=== PATIENT | female | born 1985 | race African-American/Black ===

== ENCOUNTER 2016-02-28 09:06 | Emergency (ER) | payer BC ==
[~2016-02-28] VITALS: Ht 157.5 cm; Wt 70.1 kg
[~2016-02-28 09:06] MED LIST: DIPH-437 PO; NYQUIL PO
[2016-02-28 09:12] VITALS: TEMP 36.9; Ht 157.5 cm; Wt 70.1 kg
[2016-02-28 10:09] LABS: BASO % 0.2 %; BASO ABS # 0.01 K/uL (0-0.2); COMPLETE YES; EOS % 2.2 %; HEMATOCRIT 38.3 % (37-47); IG% 0.4 %; LYMPH ABS # 1.71 K/uL (1.2-3.4); MEAN CELL VOLUME 98.2 fL (80-100); MEAN CORPUSCULAR HEMOGLOBIN 33.1 pg (25-34); MEAN CORPUSCULAR HGB CONC 33.7 g/dl (32-36); MEAN PLATELET VOLUME 10.4 fL (7.4-10.4); MONO % 6.9 %; NEUT % 59.3 %; PLATELET COUNT 236 K/uL (130-400); WHITE BLOOD COUNT 5.51 K/uL (4.8-10.8)
[2016-02-28 10:26] LABS: BUN/CREATININE RATIO 14.4 (10-20); CALCIUM 8.5 mg/dl (8.5-10.1); CREATININE 0.63 mg/dl (0.60-1.20)
[2016-02-28 10:29] LABS: ALB/GLOB RATIO 1.1 (0.9-2)
[2016-02-28] MEDS ORDERED: SODIUM CHLORIDE 0.9% 1000ML 1,000 ML IV ONE (10:30)
[2016-02-28 10:47] LABS: URINE APPEARANCE CLEAR (CLEAR); URINE BILIRUBIN NEG (NEG); URINE COLOR YELLOW; URINE NITRITE NEG (NEG); URINE PH >= 9.0 (4.5-7.5); URINE SPECIFIC GRAVITY 1.014 (1.000-1.030); UROBILINOGEN NEG (NEG); ZZUR CULT IF INDIC CLEAN CATCH NO
[2016-02-28 10:50] LABS: MANUAL MICROSCOPIC REQUIRED? NO; REVIEW REQ? NO
--- NOTE | 2016-02-28 11:14 | DIAGNOSTIC IMAGING REPORT ---
CHEST 2 VIEWS ROUTINE CLINICAL HISTORY: Cough COMPARISON STUDY: 05/07/2015 FINDINGS: The cardiac and mediastinal contours are normal. There is no evidence of focal pulmonary consolidation. There is no evidence of failure. No pleural effusions are visualized.[ IMPRESSION: No active disease in the chest. Electronically signed by: Santi London M.D. 02/28/2016 11:12 AM Dictated Date/Time: 02/28/2016 11:12 AM
[2016-02-28 12:15] VITALS: BP 110/71; PULSE 61; O2SAT 100
--- NOTE | 2016-02-28 16:42 | EMERGENCY ROOM VISIT NOTE ---
History First contact with patient: 09:55 Chief Complaint: FLU LIKE SX Stated Complaint: FLU SYMPTOMS X 3-4 DAYS History of Present Illness The patient is a 30 year old female who presents to the Emergency Room with complaints of flulike symptoms for the past 6 or 7 days. Patient states that she has had a productive cough, nausea, and intermittent diarrhea. She works at a [employer] with multiple potential exposure to disease. She has had to call off from work several times this week because of her symptoms. She has not had a fever. No chest pain, shortness of breath, or abdominal pain. No recent antibiotic usage. She has been using NyQuil with mild improvement of symptoms in the evening. She rates her discomfort a 7/10. Review of Systems More than 10 systems were reviewed and otherwise negative with the exception of history of present illness. Past Medical/Surgical History Medical Problems: (1) Cellulitis and abscess (2) Ovarian cyst Family History Cancer Gallbladder disease Heart disease Hypertension Lung disease Social History Smoking Status: Current Every Day Smoker Alcohol Use: occasionally Marital Status: single Housing Status: lives alone Occupation Status: employed Current/Historical Medications Scheduled [Nyquil], 2 CAP PO HS Allergies Coded Allergies: No Known Allergies (Unverified , 02/28/16) Physical Exam Vital Signs Date Time Temp Pulse Resp B/P Pulse Ox O2 Delivery O2 Flow Rate FiO2 02/28/16 12:15 61 18 110/71 100 Room Air 02/28/16 11:15 100/56 02/28/16 09:12 36.9 76 18 120/72 98 Room Air Pain Rating (0-10): 0 Physical Exam VITALS: Vitals are noted on the nurse's note and reviewed by myself. Vital signs stable. GENERAL: Well-developed, well-nourished, female, who is in no acute distress and resting comfortably. Patient is cooperative with the examination. HEAD: Normocephalic atraumatic. EARS: External ear normal. External auditory canals clear, tympanic membranes pearly walker without erythema or effusion bilaterally. EYES: Pupils equal round and reactive to light and accommodation. Conjunctivae without injection, sclerae without icterus. Extraocular movements intact. NOSE: Patent, turbinates without inflammation or discharge. MOUTH: Mucous membranes moist. Tonsils are not enlarged. Pharynx without erythema, blood, or exudate. Uvula midline. Airway patent. NECK: Supple without nuchal rigidity. No lymphadenopathy. No thyromegaly. Cervical spine is nontender. HEART: Regular rate and rhythm without murmurs gallops or rubs. LUNGS: Clear to auscultation bilaterally without wheezes, rales or rhonchi. No retractions or accessory muscle use. ABDOMEN: Positive normal bowel sounds x 4. Soft, nontender, without masses or organomegaly. No guarding or rebound tenderness. MUSCULOSKELETAL: No muscle atrophy, erythema, or edema noted. Full range of motion without joint tenderness in all extremities. NEURO: Patient was alert and oriented to person place and time. CN II through XII grossly intact. Medical Decision & Procedures ER Provider Diagnostic Interpretation: CHEST 2 VIEWS ROUTINE CLINICAL HISTORY: Cough COMPARISON STUDY: 05/07/2015 FINDINGS: The cardiac and mediastinal contours are normal. There is no evidence of focal pulmonary consolidation. There is no evidence of failure. No pleural effusions are visualized.[ IMPRESSION: No active disease in the chest. Laboratory Results 02/28/16 09:32 Red Blood Count 3.90, Mean Corpuscular Volume 98.2, Mean Corpuscular Hemoglobin 33.1, Mean Corpuscular Hemoglobin Concent 33.7, Mean Platelet Volume 10.4, Neutrophils (%) (Auto) 59.3, Lymphocytes (%) (Auto) 31.0, Monocytes (%) (Auto) 6.9, Eosinophils (%) (Auto) 2.2, Basophils (%) (Auto) 0.2, Neutrophils # (Auto) 3.27, Lymphocytes # (Auto) 1.71, Monocytes # (Auto) 0.38, Eosinophils # (Auto) 0.12, Basophils # (Auto) 0.01 02/28/16 09:32 Test 02/28/16 09:32 02/28/16 09:35 02/28/16 10:30 White Blood Count 5.51 K/uL (4.8-10.8) Red Blood Count 3.90 M/uL (4.2-5.4) Hemoglobin 12.9 g/dL (12.0-16.0) Hematocrit 38.3 % (37-47) Mean Corpuscular Volume 98.2 fL (80-100) Mean Corpuscular Hemoglobin 33.1 pg (25-34) Mean Corpuscular Hemoglobin Concent 33.7 g/dl (32-36) Platelet Count 236 K/uL (130-400) Mean Platelet Volume 10.4 fL (7.4-10.4) Neutrophils (%) (Auto) 59.3 % Lymphocytes (%) (Auto) 31.0 % Monocytes (%) (Auto) 6.9 % Eosinophils (%) (Auto) 2.2 % Basophils (%) (Auto) 0.2 % Neutrophils # (Auto) 3.27 K/uL (1.4-6.5) Lymphocytes # (Auto) 1.71 K/uL (1.2-3.4) Monocytes # (Auto) 0.38 K/uL (0.11-0.59) Eosinophils # (Auto) 0.12 K/uL (0-0.5) Basophils # (Auto) 0.01 K/uL (0-0.2) RDW Standard Deviation 50.3 fL (36.4-46.3) RDW Coefficient of Variation 14.1 % (11.5-14.5) Immature Granulocyte % (Auto) 0.4 % Immature Granulocyte # (Auto) 0.02 K/uL (0.00-0.02) Anion Gap 10.0 mmol/L (3-11) Est Creatinine Clear Calc Drug Dose 122.0 ml/min Estimated GFR () 141.5 Estimated GFR (Non- 122.1 BUN/Creatinine Ratio 14.4 (10-20) Calcium Level 8.5 mg/dl (8.5-10.1) Total Bilirubin 0.2 mg/dl (0.2-1) Aspartate Amino Transf (AST/SGOT) 10 U/L (15-37) Alanine Aminotransferase (ALT/SGPT) 17 U/L (12-78) Alkaline Phosphatase 37 U/L (45-117) Total Protein 6.4 gm/dl (6.4-8.2) Albumin 3.3 gm/dl (3.4-5.0) Globulin 3.1 gm/dl (2.5-4.0) Albumin/Globulin Ratio 1.1 (0.9-2) Lipase 264 U/L (73-393) Influenza Type A Antigen Neg for Influ A (NEG) Influenza Type B Antigen Neg for Influ B (NEG) Urine Color YELLOW Urine Appearance CLEAR (CLEAR) Urine pH >= 9.0 (4.5-7.5) Urine Specific [place] 1.014 (1.000-1.030) Urine Protein NEG (NEG) Urine Glucose (UA) NEG (NEG) Urine Ketones NEG (NEG) Urine Occult Blood NEG (NEG) Urine Nitrite NEG (NEG) Urine Bilirubin NEG (NEG) Urine Urobilinogen NEG (NEG) Urine Leukocyte Esterase NEG (NEG) Urine Test NEG (NEG) Medications Administered Medications (Trade) Dose Ordered Sig/Mejia Route Start Time Stop Time Status Last Admin Dose Admin Sodium Chloride (Nss 1000ml) 1,000 ml @ 999 mls/hr Q1H1M ONCE IV 02/28/16 10:30 02/28/16 11:30 DC 02/28/16 10:30 999 MLS/HR ED Course Physical exam and history were performed. Nursing notes and EMR were reviewed. Patient appears to have flulike symptoms for the past week. On exam the patient does not appear toxic. She does not have a significant fever or findings on exam. Because of the length of time of symptoms and reports of persisting cough IV access was established and basic labs were obtained. Chest x-ray was performed. The patient was hydrated with normal saline. The patient's blood work is as above and was reviewed. She does not have a significantly elevated white blood cell count, anemia, bandemia, or gross electrolyte imbalance. Influenza is negative. Chest x-ray does not show acute findings. After a few hours of emergency department stay, the patient requested that I return to the room. 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 I was still awaiting urine testing at the time of this request, I did explain this to the patient. The patient indicated that she had to leave, and was insistent that we remove her IV. I explained that we would provide her appropriate paperwork for discharge, and would contact her should her urine show significant results. The patient was comfortable with this. The patient did request a note for work, and I did give her a note for today only despite her asking for a note for the past week. She must follow with her primary care physician for further care and management. She was otherwise invited back any time and rated her discomfort a 0/10 at the time of departure. The chart was completed utilizing [employer] Voice Recognition Software. Grammatical errors, random word insertions, pronoun errors, and incomplete sentences are an occasional consequence of this system due to software limitations, ambient noise, and hardware issues. Any formal questions or concerns about the content, text, or information contained within the body of this dictation should be directly addressed to the provider for clarification. . Medical Decision Differential diagnosis: Etiologies such as viral syndrome, otitis, pharyngitis, pneumonia, influenza, meningitis, urinary tract infection, sepsis, bacteremia, as well as others were entertained. Impression Primary Impression: Flu-like symptoms Departure Information Dispostion Home / Self-Care Condition FAIR Forms HOME CARE DOCUMENTATION FORM, School Instructions, Additional Instructions: Patient was seen and evaluated today in the emergency department fo medical care. May return to work on 02/29/2016. Please excuse. IMPORTANT VISIT INFORMATION Patient Instructions A Signature Page, [facility] Additional Instructions You were seen and evaluated today on an emergency basis only. This is not a substitute for, or an effort to provide, complete comprehensive medical care. It is not possible to recognize and treat all injuries or illnesses in a single emergency department visit. For this reason it is recommended that you followup with your primary care physician in the next week for ongoing care and evaluation. For baseline pain relief you may alternate ibuprofen and acetaminophen every 4 hours for pain control. Take 600 mg ibuprofen (Advil) and then 4 hours later take 1000 mg acetaminophen (Tylenol). Do not take more than 3000 mg acetaminophen in a single day. You are welcome to return to the emergency department anytime with new, worsening, or concerning symptoms. School Instructions Additional School Instructions: Patient was seen and evaluated today in the emergency department for medical care. May return to work on 02/29/2016. Please excuse.
== END 2016-02-28 12:34 | disposition home or self-care (01) ==
LOC: C.EDB 09:07
DX: R05 Cough (principal); R11.0 Nausea; R19.7 Diarrhea, unspecified; F17.210 Nicotine dependence, cigarettes, uncomplicated

== ENCOUNTER 2016-10-26 04:01 | Emergency (ER) | payer BC, OTHER ==
[~2016-10-26] VITALS: Ht 162.6 cm; Wt 73.0 kg
[~2016-10-26 04:01] MED LIST changes: -DIPH-437 PO
[2016-10-26 04:13] VITALS: TEMP 36.8; Ht 162.6 cm; Wt 73.0 kg
[2016-10-26] MEDS ORDERED: NORCO 5/325MG HOME PACK PO ONE (04:30)
[2016-10-26] MEDS ORDERED: PENI-82 PO (04:30)
[2016-10-26] MEDS ORDERED: PENICILLIN HOME PACK 500MG (4 DOSES)BTL PO ONE (04:30)
[2016-10-26] MEDS ORDERED: TYLOTC500 PO (04:32)
[2016-10-26] MEDS ORDERED: IBUP-1050 PO (04:32)
[2016-10-26 05:04] VITALS: BP 102/77; PULSE 75; O2SAT 100
--- NOTE | 2016-10-26 05:09 | EMERGENCY ROOM VISIT NOTE ---
ED Visit Note First contact with patient: 04:21 CHIEF COMPLAINT: Toothache HISTORY OF PRESENT ILLNESS: This 30 year old female patient presented to the emergency department with a progressive toothache for past 2 days. The patient believes it is coming from a left lower molar. The pain is now steady and severe and radiates to the face. The patient does not have a dentist appointment set up. They rate their pain a 9/10 and the ibuprofen and Tylenol they have been taking has not relieved the pain. Denies facial swelling or fever. The patient denies any discharge from the mouth. REVIEW OF SYSTEMS: A 6 system review of systems was completed with positives and pertinent negatives listed in the HPI. ALLERGIES: No known allergies MEDICATIONS: See EMR PMH: See EMR SOCIAL HISTORY: Employed and lives locally PHYSICAL EXAM: Vitals are noted on the nurse's note and reviewed by myself. Vital signs stable. GENERAL: Black female, in no acute distress, nondiaphoretic, well-developed well -nourished. Mouth: The left lower #17 tooth is very carious and the gum is swollen and tender around it, without any discharge or signs of an abscess. The remainder of the pharynx and tonsils are without erythema, edema, or exudate. The airway is patent. There is no facial swelling, cervical or submandibular lymphadenopathy. The patient appears uncomfortable and in pain. The patient has overall fair dental hygiene. EARS: External auditory canals clear, tympanic membranes pearly walker without erythema or effusion bilaterally. HEART: Regular rate and rhythm without murmur gallop or rub LUNG: Clear to auscultation bilateral ED COURSE: Physical exam and history were performed. Nursing notes and EMR were reviewed. The patient appears to have left-sided lower dental pain for the past 2 days. She does not have evidence of airway, otherwise or abscess. She is not regularly seen at this department for dental care. She was given Pen -Vee K and a home pack of Vicodin. She is to follow with her dentist for definitive care. She was otherwise invited back to ER with any new, worsening, or concerning symptoms. Problem List Medical Problems: (1) Cellulitis and abscess Status: Resolved (2) Ovarian cyst Status: Resolved Current/Historical Medications Scheduled Penicillin V Potassium (Veetids), 500 MG PO QID Scheduled PRN Acetaminophen (Tylenol), 1,000 MG PO Q4 PRN for Pain Ibuprofen (Advil), 200-600 MG PO Q4H PRN for Pain Allergies Coded Allergies: No Known Allergies (Unverified , 10/26/16) Vital Signs Date Time Temp Pulse Resp B/P (MAP) Pulse Ox O2 Delivery O2 Flow Rate FiO2 10/26/16 04:13 36.8 61 18 134/70 98 Room Air Medications Administered Medications (Trade) Dose Ordered Sig/Mejia Route Start Time Stop Time Status Last Admin Dose Admin Penicillin V Potassium (Pen-Vk 500MG Home Pack) 1 homepack UD ONCE PO 10/26/16 04:30 10/26/16 04:31 DC 10/26/16 04:50 1 HOMEPACK Acetaminophen/ Hydrocodone Bitart ([place] 5/325mg Home Pack) 1 homepack UD ONCE PO 10/26/16 04:30 10/26/16 04:31 DC 10/26/16 04:50 1 HOMEPACK Departure Information Impression Primary Impression: Pain, dental Dispostion Home / Self-Care Condition GOOD Prescriptions Penicillin V Potassium (Veetids) 500 Mg Tab 500 MG PO QID for 10 Days, #40 TAB Prov: Quan Oreilly PA-C 10/26/16 Forms HOME CARE DOCUMENTATION FORM, Work Instructions, Additional Instructions: Patient was seen today and evaluated in the emergency department medica care. Return to work on 10/27/2016. Please excuse. IMPORTANT VISIT INFORMATION Patient Instructions My [facility] Additional Instructions You were seen and evaluated today on an emergency basis only. This is not a substitute for, or an effort to provide, complete comprehensive medical care. It is not possible to recognize and treat all injuries or illnesses in a single emergency department visit. For this reason it is recommended that you followup with a dentist as soon as possible for definitive care. For baseline pain relief you may alternate ibuprofen and acetaminophen every 4 hours for pain control. Take 600 mg ibuprofen (Advil) and then 4 hours later take 1000 mg acetaminophen (Tylenol). Do not take more than 3000 mg acetaminophen in a single day. Take Pen-Vee K 500 mg 4 times daily for the next 10 days. [place] (hydrocodone/acetaminophen) 5/325 mg (homepack) every 6 hours as needed for worsening breakthrough pain. Do not drink or drive on [place]. This medication will likely make you tired. Do not take [place] and Tylenol at the same time as both contain acetaminophen. [place] may cause constipation. You may wish to take an pqvi-yyu-eexrtqy stool softener like Colace if this occurs. You are welcome to return to the emergency department anytime with new, worsening, or concerning symptoms. Work Instructions Additional Work Instructions: Patient was seen today and evaluated in the emergency department medical care. Return to work on 10/27/2016. Please excuse.
== END 2016-10-26 05:04 | disposition home or self-care (01) ==
LOC: C.EDB 04:02 → C.EDC 05:04
DX: K08.89 Other specified disorders of teeth and supporting structures (principal)

== ENCOUNTER 2017-03-13 04:06 | Emergency (ER) | payer OTHER ==
[~2017-03-13] VITALS: Ht 162.6 cm; Wt 70.0 kg
[~2017-03-13 04:06] MED LIST changes: +IBUP-1050 PO; -NYQUIL PO; +TYLOTC500 PO
[2017-03-13 04:14] VITALS: TEMP 37; Ht 162.6 cm; Wt 70.0 kg
[2017-03-13] MEDS ORDERED: BENZOCAINE 20% (ORAJEL) 11.9 GM TUBE MT STA (04:25)
[2017-03-13] MEDS ORDERED: CLIN150C PO (04:27)
[2017-03-13] MEDS ORDERED: CLINDAMYCIN 150MG HOME PACK PO ONE (04:30)
[2017-03-13] MEDS ORDERED: TRAMADOL HCL 50 MG HOME PACK PO ONE (04:30)
--- NOTE | 2017-03-13 04:31 | EMERGENCY ROOM VISIT NOTE ---
History First contact with patient: 04:18 Chief Complaint: DENTAL PAIN Stated Complaint: TOOTH ACHE, EAR HURTS Nursing Triage Summary: PAIN STARTED @ 0300. PAIN NOT CONTROLLED AFTER TAKING 2 MOTRIN. PT TO HAVE WISDOM TEETH PULLED IN [place], BUT MEEDS TO MAKE APPT. History of Present Illness The patient is a 31 year old female who presents to the Emergency Room with complaints of left lower dental pain for the past day who needs to have her wisdom teeth extracted. Patient does not have an appointment for this. She missed her last one. She tried Motrin with no relief of pain. She describes the pain as aching, ranging in severity 8 out of 10 worse with chewing and better with rest. Patient denies headache, lightheadedness, neck stiffness, sore throat, fever, chills, cold symptoms, chest pain, dyspnea, numbness, tingling. She is tolerate by mouth fluids and food. Review of Systems See HPI for pertinent positives & negatives. A total of 10 systems reviewed and were otherwise negative. Past Medical/Surgical History Medical Problems: (1) Cellulitis and abscess (2) Ovarian cyst Family History Cancer Gallbladder disease Heart disease Hypertension Lung disease Social History Smoking Status: Current Every Day Smoker Alcohol Use: occasionally Marital Status: single Housing Status: lives alone Occupation Status: employed Current/Historical Medications Scheduled Clindamycin Hcl (Cleocin), 150 MG PO QID Scheduled PRN Acetaminophen (Tylenol), 1,000 MG PO Q4 PRN for Pain Ibuprofen (Advil), 200-600 MG PO Q4H PRN for Pain Physical Exam Vital Signs Date Time Temp Pulse Resp B/P (MAP) Pulse Ox O2 Delivery O2 Flow Rate FiO2 03/13/17 04:14 37.0 79 20 123/79 99 Room Air Physical Exam VITALS: Vitals are noted on the nurse's note and reviewed by myself. Vital signs stable. GENERAL: Female, in no acute distress, nondiaphoretic, well-developed well- nourished. SKIN: The skin was without rashes, erythema, edema, or bruising. There is no tenting of the skin. Capillary reflex less than 2 seconds. HEAD: Normocephalic atraumatic. EARS: External auditory canals clear, tympanic membranes pearly walker without erythema or effusion bilaterally. EYES: Pupils equal round and reactive to light and accommodation. Conjunctivae without injection, sclerae without icterus. Extraocular movements intact. NOSE: Patent, turbinates without inflammation or discharge. No sinus tenderness. MOUTH: Mucous membranes moist. Pharynx without erythema or exudate. Uvula midline. Airway patent. Tongue does not deviate. No Shaka's angina Dental exam: Left lower molar with extensive dental decay without palpable abscess. Overall dental hygiene fair NECK: Supple without nuchal rigidity. No lymphadenopathy. No thyromegaly. Cervical spine is nontender. No JVD. HEART: Regular rate and rhythm without murmurs gallops or rubs. LUNGS: Clear to auscultation bilaterally without wheezes, rales or rhonchi. No retractions or accessory muscle use. MUSCULOSKELETAL: No muscle atrophy, erythema, or edema noted. NEURO: Patient was alert and oriented to person place and time. Normal sensation to light and sharp touch. No focal neurological deficits. Medical Decision & Procedures ED Course Prior records reviewed and summarized as above. Triage Nursing notes reviewed. The patient's history was concerning for dental pain. Differential diagnosis: Etiologies such as cellulitis, abscess, cavity, gingivitis, wisdom teeth impaction, as well as others were entertained.. Physical examination: The physical examination was consistent with dental pain from dental [place] ER treatment provided: Cleocin, Ultram On reassessment the patient felt better. Diagnostics interpreted by me: Deferred This appears to be dental pain from dental cavity. Patient was counseled on proper dental hygiene. She was started on antibiotics. She is advised to follow-up with dentistry for definitive care for her ongoing dental problems. Patient's been to this ER before for dental problems. Patient was advised to return to the ER immediately for fevers, facial swelling, dysphagia, worsening signs or symptoms or as needed. Patient had no signs of Shaka angina. No palpable abscess. By the evaluation outlined above emergent etiologies such as abscess, Shaka angina, as well as others were deemed relatively unlikely. The pt informed about the findings as listed above. All questions were answered and pleased with the treatment. Return instructions were outlined and the patient was discharged in stable condition. Outpatient prescription management: Cleocin Referral: The patient was referred to dentistry for follow-up in 2 to 3 days for a recheck of the current condition. Medical Decision As above [place] Drug Monitoring Program Search Results: patient reviewed within database, no issues identified Medication Reconcilliation Current Medication List: was personally reviewed by me Blood Pressure Screening Patient's blood pressure: Normal blood pressure Impression Primary Impression: Dental caries Additional Impression: Tooth pain with chewing Departure Information Dispostion Home / Self-Care Condition GOOD Prescriptions Clindamycin Hcl (CLEOCIN) 150 Mg Cap 150 MG PO QID for 10 Days, #40 CAP Prov: Yoly Rowland .TABBY 03/13/17 Referrals No Doctor, Assigned (PCP) Forms HOME CARE DOCUMENTATION FORM, IMPORTANT VISIT INFORMATION Patient Instructions My [facility], ED Tooth Pain Additional Instructions Clindamycin 150mg: Take one pill 4 times daily for 10 days for your infection. Take with food, but avoid dairy. Avoid prolonged sun exposure since this medication makes you temporarily more susceptible to sunburns. All antibiotics can cause diarrhea. If this occurs and you feel worse or it does not resolve in 1-2 days follow up with your doctor or return to the Emergency Department as this could be signs of serious underlying problems. Any medication can cause an allergic reaction, stop the pills immediately and return to the ER for rash, hives, breathing difficulties, or swelling. Ultram 50 mg: Take 1-2 pills every four hours for breakthrough pain. Avoid alcohol, operating machinery or dangerous equipment, working on ladders or roofs , DRIVING, or situations where being under the influence may be dangerous. It is recommended to use an ehxx-lbi-jvlrqwq stool softener such as Colace, 100mg twice daily while taking this medication to avoid constipation. Ibuprofen(Motrin, Advil) may be used for fever or pain. Use 600mg every six hours as needed. Take with food. Avoid using more than 2400mg in a 24 hour period. Do not use 2400mg per day for more than three consecutive days without physician direction. Prolonged inappropriate use can lead to stomach upset or ulcers. This medication can be taken if you need to drive, work, or perform activities which may be dangerous when taking narcotic pain medication. (AND/OR) Acetaminophen(Tylenol) may be used for fever or pain. Use 1000mg every six hours as needed. Avoid using more than 3000mg in a 24 hour period. This medication can be taken if you need to drive, work, or perform activities which may be dangerous when taking narcotic pain medication. [place] teeth twice a day, floss daily and do warm saltwater gargles 3 times a day. See a dentist as soon as possible for definitive care for your dental problem. Return to ER sooner for facial swelling, fever, redness, worsening signs or symptoms or as needed. Problem Qualifiers
[2017-03-13 04:43] VITALS: BP 113/73; PULSE 73; O2SAT 98
== END 2017-03-13 04:44 | disposition home or self-care (01) ==
LOC: C.EDB 04:06
DX: K02.9 Dental caries, unspecified (principal); K08.89 Other specified disorders of teeth and supporting structures; Z82.49 Family history of ischemic heart disease and other diseases of the circulatory system; F17.200 Nicotine dependence, unspecified, uncomplicated

== ENCOUNTER 2017-03-15 18:11 | Emergency (ER) | payer OTHER ==
[~2017-03-15] VITALS: Ht 162.6 cm; Wt 68.0 kg
[~2017-03-15 18:11] MED LIST changes: +CLIN150C PO; -IBUP-1050 PO; -TYLOTC500 PO
[2017-03-15 18:31] VITALS: TEMP 36.9; Ht 162.6 cm; Wt 68.0 kg
--- NOTE | 2017-03-15 19:09 | EMERGENCY ROOM VISIT NOTE ---
ED Visit Note First contact with patient: 18:55 CHIEF COMPLAINT: Toothache HISTORY OF PRESENT ILLNESS: This patient is a 31-year-old female that returns to the emergency department complaining of severe pain coming from her left upper and left lower wisdom teeth that has been going on for several weeks. The patient was seen in the emergency department 2 nights ago for the same pain. She was prescribed tramadol and clindamycin, which she has been taking with no relief. She has also tried ibuprofen with no relief. She denies any fever or chills. No swelling to the face. No drainage in the mouth. The patient does not yet have a dentist appointment set up. REVIEW OF SYSTEMS: A 6 system review of systems was completed with positives and pertinent negatives listed in the HPI. ALLERGIES: No known drug allergies MEDICATIONS: Clindamycin PMH: Otherwise healthy SOCIAL HISTORY: She does smoke cigarettes daily. Denies alcohol use. She is employed. PHYSICAL EXAM: Vitals are noted on the nurse's note and reviewed by myself. Vital signs stable. Temperature 36.9C orally. GENERAL: 31-year-old - [place] female, tearful, nondiaphoretic, well-developed well-nourished. Mouth : The left upper and left lower wisdom teeth are very carious. The gums are slightly edematous surrounding the teeth. No signs of abscess. No fluctuance or draining. No facial swelling noted. No lymphadenopathy noted. The patient has overall fair dental hygiene. EARS: External auditory canals clear, tympanic membranes pearly walker without erythema or effusion bilaterally. ED COURSE: The patient was seen and examined. She was given a home pack Percocet. DIAGNOSIS: Odontalgia DISCHARGE INSTRUCTIONS & TREATMENT: You have been prescribed Percocet to be used for pain control. This is a narcotic medication. You cannot drive or consume alcohol while on this medicine. This medicine should only be used for pain that cannot be controlled with [id number] pain medicines. Continue ibuprofen 600 mg every 6 hours. You were prescribed clindamycin This is an antibiotic. All antibiotics have the potential to cause diarrhea. Stop this medication and contact a medical provider if you were to develop any significant adverse side effects including: wheezing, shortness of breath, passing out, vomiting, or a diffuse rash. Always take antibiotics as directed and COMPLETE the ENTIRE course regardless of the improvement of your symptoms. Refrain from smoking cigarettes or using chewing tobacco until you have been evaluated by your dentist. Keeping beverages lukewarm and consuming soft foods can decrease your pain. Warm compresses over the affected area may offer some relief. You MUST seek evaluation of your dental pain by a dentist following your visit to the Emergency Department. The Emergency Department is not capable of treating dental issues long-term. You should call your dentist as soon as possible to make an appointment for evaluation of your dental pain. Please call Dr. Alfredo Franz DMD for further valuation. [phone] Return to the emergency department if you develop the following symptoms despite treatment course outlined above: fever, intractable pain, increased redness, swelling, or purulent discharge. This chart was completed in part utilizing [employer] Voice Recognition software. Attempts were made to minimize the grammatical errors, random word insertions, pronoun errors and incomplete sentences. Any formal questions or concerns about the content, text or information contained within the body of this dictation should be directly addressed to the provider for clarification.
[2017-03-15] MEDS ORDERED: IBUP-103 PO (19:15)
[2017-03-15] MEDS ORDERED: PERCOCET HOME PACK PO ONE (19:15)
[2017-03-15] MEDS ORDERED: OXYC-57 PO (19:16)
[2017-03-15 19:28] VITALS: BP 132/75; PULSE 78; O2SAT 98
== END 2017-03-15 19:23 | disposition home or self-care (01) ==
LOC: C.EDB 18:11 → C.EDD 19:23
DX: K08.89 Other specified disorders of teeth and supporting structures (principal); F17.210 Nicotine dependence, cigarettes, uncomplicated